=== PATIENT | female | born 1980 | race African-American/Black ===

== ENCOUNTER 2016-12-16 06:06 | Inpatient (IN) ==
[2016-12-16 06:35] LABS: URINE SOURCE VOIDED
[2016-12-16 06:45] LABS: BILIRUBIN URINE NEGATIVE (NEGATIVE); BLOOD URINE 4+ (NEGATIVE); CLARITY CLEAR (CLEAR); COLOR YELLOW; GLUCOSE URINE NEGATIVE (NEGATIVE); LEUKOCYTES URINE NEGATIVE (NEGATIVE); NITRITE URINE NEGATIVE (NEGATIVE); PH URINE 6.5; PROTEIN URINE NEGATIVE (NEGATIVE); UROBILINOGEN URINE NORMAL
[2016-12-16] MEDS ORDERED: PITOCIN ONE ×2 (07:53→09:19)
[2016-12-16] MEDS ORDERED: NS 100 ML ONE (07:53)
[2016-12-16] MEDS ORDERED: NEO-SYNEPHRINE ONE (07:53)
[2016-12-16] MEDS ORDERED: DURAMORPH ONE (07:53)
[2016-12-16] MEDS ORDERED: ZOFRAN ONE (07:53)
[2016-12-16] MEDS ORDERED: KEFZOL 1 GM/D5W 1 GM/50 ML IVPB IV PRN (07:54)
[2016-12-16] MEDS ORDERED: LR 500 ML IV ONE (07:54)
[2016-12-16] MEDS ORDERED: PEPCID PO ONE (07:54)
[2016-12-16] MEDS ORDERED: LR 1,000 ML IV SCH ×2 (07:54→14:59)
[2016-12-16] MEDS ORDERED: REGLAN PO ONE (07:54)
--- NOTE | 2016-12-16 08:05 | HISTORY AND PHYSICAL ---
PHYSICIAN: Shaquille Cooper MD DIAGNOSES: 1. A 37 and 5/7 weeks' gestation. 2. Spontaneous rupture of membranes. 3. Breech presentation. SUMMARY: Ever Rosales is a 36-year-old, 2, para 1-0-0-0, who is 37 and 5/7 weeks' gestation. She has had an uncomplicated except for breech presentation. She was scheduled for a primary Wednesday for breech presentation. However, she presented to labor and delivery today with spontaneous rupture of membranes. This occurred at approximately 5:30 this morning. Ruptured membranes was confirmed by the ROM Plus test. An ultrasound was performed which reconfirms breech presentation. We are, therefore, preparing for delivery. PAST MEDICAL HISTORY: Patient's 1st ended in a vaginal delivery. However, that child had intrauterine growth retardation, oligohydramnios. There was lung immaturity and the infant did survive; otherwise, she has no chronic medical or surgical illnesses. CURRENT MEDICATIONS: vitamins. ALLERGIES: Shell fish. PHYSICAL EXAMINATION: GENERAL: Shows a well-developed, well-nourished female. VITAL SIGNS: Stable. She is afebrile. CARDIOVASCULAR: Regular rate and rhythm without murmurs, rubs, or gallops. PULMONARY: Clear. BREASTS: No masses. ABDOMEN: Gravid. Cervix is closed. EXTREMITIES: No clubbing, edema or cyanosis. IMPRESSION: 1. Spontaneous ruptured membranes at 37 and 5/7 weeks' gestation. 2. Breech presentation. PLAN: For these indications, we will proceed with delivery. Risks, benefits, possible complications, and obstetrical indications were discussed in detail. cc: Shaquille Cooper MD
[2016-12-16] MEDS ORDERED: SODIUM CHLORIDE 0.9% INJ ONE (08:15)
[2016-12-16] MEDS ORDERED: PEPCID IV ONE (08:15)
[2016-12-16] MEDS ORDERED: BICITRA PO ONE (08:15)
[2016-12-16] MEDS ORDERED: ROBINUL ONE (09:16)
[2016-12-16] MEDS ORDERED: PITOCIN 20 UNITS/LR 40 UNITS/2,000 ML IV.SOLN ONE (09:28)
[2016-12-16 10:20] LABS: MANUAL DIFF NEEDED? NO
[2016-12-16 10:23] LABS: BASO% 0.1 % (0.0-0.8); EOS# 0.06 X1000 (0.0-0.7); EOS% 0.7 % (0.0-10.0); HEMOGLOBIN 10.1 g/dL (12.0-16.0); IMM GRAN# 0.04 X1000 (0.0-0.04); IMM GRAN% 0.5 % (0.0-0.5); LYMPH# 1.87 X1000 (1.2-3.4); LYMPH% 22.2 % (20.5-51.1); MCH 27.2 PG (27-31); MCHC 31.6 g/dL (33-37); MONO# 1.02 X1000 (0.11-0.59); MONO% 12.1 % (1.7-9.3); MPV 11.1 FL (7.4-10.4); NEUT% 64.4 % (42.2-75.2); PLT 247 X1000 (130-400); RBC 3.72 XMIL (4.2-5.4)
[2016-12-16] MEDS ORDERED: ZOFRAN ODT PO PRN (10:33)
[2016-12-16] MEDS ORDERED: NARCAN INJ PRN (10:33)
[2016-12-16] MEDS ORDERED: ZOFRAN IV PRN ×2 (10:33)
[2016-12-16] MEDS ORDERED: BENADRYL IV PRN (10:33)
[2016-12-16] MEDS ORDERED: TORADOL IV PRN (10:34)
[2016-12-16] MEDS: MORPHINE IV PRN ×2 (10:53→14:04)
--- NOTE | 2016-12-16 11:09 | OPERATIVE NOTE ---
PROCEDURE DATE: 12/16/2016 SURGEON: Dr. Shaquille Cooper. CHROME TANNING DRUM OPERATOR: Cady Mclean ANESTHESIA: Spinal. OPERATION PERFORMED: Primary low transverse . PREOPERATIVE DIAGNOSIS: 37 and 5/7 weeks gestation with spontaneous rupture of membranes and breech presentation. POSTOPERATIVE DIAGNOSIS: 37 and 5/7 weeks gestation with spontaneous rupture of membranes and breech presentation. FINDINGS: At 0921 a 4 pounds 15 ounce female infant was delivered in breech presentation. There was a tight nuchal cord x1. Apgars were 9 at 1 minute, 9 at 5 minutes. SUMMARY: The patient was taken back to the operating room, where a spinal anesthetic was placed. Then placed in supine position with left lateral tilt. The abdomen is prepped and draped in usual fashion. A Corona catheter was in the urinary bladder. Once satisfactory conduction anesthesia was demonstrated, a Pfannenstiel incision was made. This incision was taken down to the fascia. The fascia was excised transversely. The underlying rectus muscles were bluntly and sharply dissected free. The rectus muscle was in the midline. The peritoneum was entered. Lower uterine segment identified, a bladder flap was created. A low transverse incision was made across the myometrium. This incision was extended laterally using digital pressure. The infant's buttocks were delivered through this incision. With gentle traction, the legs were delivered. The infant was delivered to the scapula. The arms were reduced and delivered. The head was flexed and delivered. The nuchal cord was reduced. Cord was clamped and cut, and infant was handed to the nurses for further care and evaluation. Cord blood was obtained. Placenta was manually removed. The uterus was delivered onto the abdominal wall and explored. All membrane fragments removed. Myometrium was then reapproximated using a running #1 chromic interlocking suture, the uterus was placed back in pelvic cavity. Complete hemostasis was noted. The pelvic cavity was irrigated with copious amounts of sterile water. At this time our 1st and 2nd sponge, instrument and needle count reported as correct. Thus the peritoneum was closed using a running chromic suture. Third sponge, instrument and needle count reported as correct. The fascia closed using running Vicryl sutures x2. Reapproximated using a running 3-0 Vicryl suture. The skin edges reapproximated using a 4-0 Biosyn on a Jordan needle. Final sponge, instrument, and needle count reported as correct. Blood loss estimated at 500 mL. The patient went to the recovery room in stable condition. cc: Shaquille Cooper MD MTDD
[2016-12-16] MEDS ORDERED: AMBIEN PO PRN (12:13)
[2016-12-16] MEDS ORDERED: MYLICON PO PRN (12:13)
[2016-12-16] MEDS ORDERED: M-M-R II VACCINE SUBQ ONE (12:13)
[2016-12-16] MEDS ORDERED: DULCOLAX PR PRN (12:13)
[2016-12-16] MEDS ORDERED: CYTOTEC PO PRN (12:13)
[2016-12-16] MEDS ORDERED: BOOSTRIX VACCINE IM ONE (12:13)
[2016-12-16] MEDS ORDERED: NORCO-10 PO PRN (12:13)
[2016-12-16] MEDS ORDERED: HYDROXYZINE IM PRN (12:13)
[2016-12-16] MEDS ORDERED: PHENERGAN IM PRN (12:13)
[2016-12-16] MEDS ORDERED: PITOCIN 20 UNITS/LR 20 UNITS/1,000 ML IV.SOLN IV ONE (12:13)
[2016-12-16] MEDS ORDERED: DEMEROL IM PRN (12:13)
[2016-12-16] MEDS ORDERED: DEMEROL PO PRN ×2 (12:13)
[2016-12-16] MEDS ORDERED: HYDROXYZINE PO PRN (12:13)
[2016-12-16] MEDS ORDERED: PERCOCET-5 PO PRN (12:13)
[2016-12-16] MEDS ORDERED: NORCO-5 PO PRN (12:13)
[2016-12-16] MEDS ORDERED: PITOCIN IM PRN (12:13)
[2016-12-16] MEDS: MYLICON PO SCH ×2 (14:04→20:41)
[2016-12-16] MEDS ORDERED: NARCAN IV PRN (14:59)
[2016-12-16] MEDS ORDERED: MORPHINE PCA IV PRN (14:59)
[2016-12-16] MEDS: TORADOL IV SCH ×2 (17:48→22:31)
[2016-12-16] MEDS: PITOCIN 10 UNITS/LR 10 UNIT/1,000 ML IV.SOLN IV SCH (17:51)
[2016-12-16] MEDS: PERICOLACE PO SCH (20:41)
[2016-12-17] MEDS: PITOCIN 10 UNITS/LR 10 UNIT/1,000 ML IV.SOLN IV SCH (01:13)
[2016-12-17] MEDS: TORADOL IV SCH (04:40)
[2016-12-17 05:43] LABS: HEMATOCRIT 28.2 % (37.0-47.0); HEMOGLOBIN 8.8 g/dL (12.0-16.0); MCH 27.2 PG (27-31); MCHC 31.2 g/dL (33-37); MCV 87.3 FL (81-99); MPV 10.7 FL (7.4-10.4); RBC 3.23 XMIL (4.2-5.4)
[2016-12-17] MEDS: MYLICON PO SCH ×7 (09:32→21:39)
[2016-12-17] MEDS: PRECARE PO SCH (09:32)
[2016-12-17] MEDS ORDERED: LR 1,000 ML IV SCH (09:58)
[2016-12-17] MEDS: PERCOCET-10 PO PRN ×4 (11:32→21:05)
[2016-12-17] MEDS: MOTRIN PO PRN ×2 (11:32→19:41)
[2016-12-17] MEDS: PERICOLACE PO SCH ×2 (19:41→21:39)
[2016-12-18] MEDS: PERCOCET-10 PO PRN ×4 (01:05→13:20)
[2016-12-18] MEDS: MOTRIN PO PRN (05:04)
[2016-12-18] MEDS: MYLICON PO SCH ×3 (09:56→13:20)
[2016-12-18] MEDS: PRECARE PO SCH (09:56)
[2016-12-18 11:16] VITALS: BP 119/56
--- NOTE | 2016-12-18 12:57 | DISCHARGE SUMMARY ---
ADMISSION DATE: 12/16/2016 DISCHARGE DATE: 12/18/2016 ADMIT DIAGNOSES: 1. Term in active labor. 2. Previous section. DISCHARGE DIAGNOSES: 1. Term in active labor. 2. Previous section. CONDITION: Stable. DIET: As tolerated. ACTIVITY: Routine and postop. FOLLOW UP: She is to follow up in [address] Cooper. DISCHARGE MEDICATIONS: She is to continue vitamins with iron and stool softeners and a prescription for [place] 10 has been given. HOSPITAL COURSE: Please refer to Ms. Rosales's records, H P, and OP Note. She was admitted in active labor and had a planned repeat section scheduled, however, it was done that night and now she is postop day 2, doing well without complaints, and desiring discharge. PHYSICAL EXAMINATION: VITAL SIGNS: Her vital signs are stable. She is afebrile. GENERAL: She is alert, cooperative, and in no distress. NECK: Supple. LUNGS: Clear. HEART: Regular, sinus rhythm. ABDOMEN: The abdomen is distended. The incision is dry and intact. The uterus is firm. EXTREMITIES: +2 lower extremity edema. LABORATORY DATA: Hemoglobin is 8.8. DISPOSITION: We will discharge with the above instructions. cc: MD Shaquille Edwards MD
== END 2016-12-18 14:05 | disposition home or self-care (01) ==
LOC: P.OPLD 06:06 → P.LD 06:12 → P.WC 14:08
PROVIDERS: ADMIT Obstetrics & Gynecology; ATTEND Obstetrics & Gynecology